=== PATIENT | male | born 1995 | race Caucasian/White ===

== ENCOUNTER 2019-10-03 03:32 | Emergency (ER) | payer SELFPAY ==
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
[2019-10-03] MEDS ORDERED: FLU Vacc QS2019-20(6MOS+)/PF 60 MCG/0.5 ML SYRINGE IM ONE (05:00)
--- NOTE | 2019-10-03 17:09 | CT ---
CT facial bones Technique: Multiple axial sections through the facial bones were obtained. Reconstructed coronal and sagittal images were obtained. Comparison: No previous study is available. Findings: Slightly comminuted and mildly displaced nasal bone fractures are seen on both sides. No additional facial bone fracture is appreciated. Right and left globes are symmetric. Minimal scattered areas of mucosal thickening are seen within the paranasal sinuses. Impression: 1. Comminuted and mildly displaced nasal bone fracture on both sides. 2. Minimal mucosal thickening scattered within the paranasal sinuses which is believed to be pre-existing and incidental. 3. No additional abnormality is appreciated. Diagnostic code #3 This report was dictated in [place] Standard Time I agree with preliminary report from [facility], finalized on 10/03/19, 5:59 AM Central Time
== END 2019-10-03 05:20 | disposition home or self-care (01) ==
LOC: JD.ED 03:32
DX: S02.2XXA Fracture of nasal bones, initial encounter for closed fracture (principal); F10.20 Alcohol dependence, uncomplicated; F17.210 Nicotine dependence, cigarettes, uncomplicated; Z23 Encounter for immunization; Y04.0XXA Assault by unarmed brawl or fight, initial encounter; Y92.89 Other specified places as the place of occurrence of the external cause
CPT/HCPCS: 70486; 70486-26; 99283; 99284-25; G0008

== ENCOUNTER 2020-02-25 01:27 | Emergency (ER) | payer SELFPAY ==
[2020-02-25] MEDS ORDERED: Lidocaine 1% 10 ML MDV INJECT ONE (02:24)
[2020-02-25] MEDS ORDERED: Diphtheria,Pertussis(Acell),Tetanus Vaccine 0.5 ML Syringe IM ONE (02:29)
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
[2020-02-25] MEDS ORDERED: Amoxicillin/Clavulanate K 875-125 MG Tab PO ONE (03:09)
== END 2020-02-25 03:20 | disposition home or self-care (01) ==
LOC: JD.ED 01:27
DX: S61.351A Open bite of left index finger with damage to nail, initial encounter (principal); F17.210 Nicotine dependence, cigarettes, uncomplicated; Z23 Encounter for immunization; W50.3XXA Accidental bite by another person, initial encounter
CPT/HCPCS: 64450; 90471; 90715; 99283; A9270; J2001; 11760

== ENCOUNTER 2020-06-09 08:56 | Emergency (ER) | payer SELFPAY ==
--- NOTE | 2020-06-09 09:21 | EDM.PDOC ---
ED HPI GENERAL MEDICAL PROBLEM - General Chief Complaint: Lower Extremity Injury/Pain Stated Complaint: LT FOOT INJURY Time Seen by Provider: 06/09/20 09:11 Source of Information: Reports: Patient History Limitations: Reports: No Limitations - History of Present Illness INITIAL COMMENTS - FREE TEXT/NARRATIVE: The patient presents with left foot pain and swelling. The patient slipped on fell on some ice and injured his left foot. He has pain and swelling still. He has some numbness to his toes and has trouble moving his toes. He has no other injuries. Onset: Sudden Duration: Minutes: Location: Reports: Lower Extremity, Left (foot) Quality: Reports: Sharp Severity: Moderate Improves with: Reports: Immobilization Worsens with: Reports: Movement Context: Reports: Trauma (slipped and fell on ice) Associated Symptoms: Reports: No Other Symptoms Left Foot Pain Score (Numeric/FACES): 5 - Related Data Allergies Allergy/AdvReac Type Severity Reaction Status Date / Time No Known Allergies Allergy Verified 06/09/20 09:13 Home Meds: Home Meds . [No Known Home Meds] 06/09/20 [History] Past Medical History HEENT History: Reports: Other (See Below) Other HEENT History: Hx of nasal fx. Cardiovascular History: Reports: None Respiratory History: Reports: None Genitourinary History: Reports: None Musculoskeletal History: Reports: Fracture Neurological History: Reports: Concussion Psychiatric History: Reports: None Endocrine/Metabolic History: Reports: None Hematologic History: Reports: None Immunologic History: Reports: None Oncologic (Cancer) History: Reports: None Dermatologic History: Reports: None - Infectious Disease History Infectious Disease History: Reports: MRSA - Past Surgical History HEENT Surgical History: Reports: Oral Surgery GI Surgical History: Reports: Appendectomy, Cholecystectomy, Other (See Below) Social & Family History - Family History Family Medical History: Noncontributory - Caffeine Use Caffeine Use: Reports: Coffee - Living Situation & Occupation Living situation: Reports: Single, with Family (Parents) 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) Review of Systems - Review of Systems Review Of Systems: See Below Constitutional: Reports: No Symptoms Eyes: Reports: No Symptoms Ears: Reports: No Symptoms Nose: Reports: No Symptoms Mouth/Throat: Reports: No Symptoms Respiratory: Reports: No Symptoms Cardiovascular: Reports: No Symptoms GI/Abdominal: Reports: No Symptoms Genitourinary: Reports: No Symptoms Musculoskeletal: Reports: Other (Left lateral foot swelling and pain) ED EXAM, GENERAL - Physical Exam Exam: See Below Exam Limited By: No Limitations General Appearance: Alert, No Apparent Distress Ears: Normal External Exam Nose: Normal Inspection Head: Atraumatic, Normocephalic Neck: Normal Inspection Respiratory/Chest: No Respiratory Distress Extremities: Other (Swelling and pain to the left lateral anterior foot with mild pain upon palpation to the left lateral ankle. Good capillary refill distally. Decreased sensation to the 2nd through 5th toes.) Course - Vital Signs Last Recorded V/S: Last Vital Signs Temp 97.2 F 06/09/20 09:10 Pulse 98 06/09/20 09:10 Resp 14 06/09/20 09:10 BP 139/90 06/09/20 09:10 Pulse Ox 97 06/09/20 09:10 - Orders/Labs/Meds Orders: Active Orders 24 hr Category Date Time Status Foot Comp Min 3V Lt [CR] Stat Exams 06/09/20 09:16 Taken - Re-Assessments/Exams Free Text/Narrative Re-Assessment/Exam: 06/09/20 09:20 I have ordered an x-ray of his foot. 06/09/20 09:54 The x-ray of his foot shows no fracture. I will discharge him home. Departure - Departure Time of Disposition: 09:55 Disposition: Home, Self-Care 01 Condition: Good Clinical Impression: Sprain of left foot Qualifiers: Encounter type: initial encounter Qualified Code(s): S93.602A - Unspecified sprain of left foot, initial encounter - Discharge Information *PRESCRIPTION DRUG MONITORING PROGRAM REVIEWED*: Not Applicable *COPY OF PRESCRIPTION DRUG MONITORING REPORT IN PATIENT NATHALY: Not Applicable Referrals: PCP,None [Primary Care Provider] - Akshat Stone MD [Physician] - 2 Weeks Forms: ED Department Discharge Additional Instructions: Take tylenol or motrin for pain. Use ice or heat for your foot. If you do not feel better in a couple weeks follow up with Dr Stone. Sepsis Event Note (ED) - Evaluation Sepsis Screening Result: No Definite Risk - Focused Exam Vital Signs: Vital Signs Temp Pulse Resp BP Pulse Ox 06/09/20 09:10 97.2 F 98 14 139/90 97 - My Orders Last 24 Hours: My Active Orders 06/09/20 09:16 Foot Comp Min 3V Lt [CR] Stat - Assessment/Plan Last 24 Hours: My Active Orders 06/09/20 09:16 Foot Comp Min 3V Lt [CR] Stat
--- NOTE | 2020-06-09 14:15 | CR ---
PROCEDURE INFORMATION: Exam: XR Left Tibia and Fibula Exam date and time: 06/09/2020 9:23 AM Age: 24 years old Clinical indication: Injury or trauma; Fall; Blunt trauma and sprain or strain; Left; Injury details: Slipped and fell down some icy stairs; Patient commented that the outside of his foot hit two stairs on his way down TECHNIQUE: Imaging protocol: XR Left tibia and fibula. Views: 2 views. COMPARISON: No relevant prior studies available. FINDINGS: Bones/joints: Normal. No fracture identified. Soft tissues: Soft tissue swelling about the left midfoot. IMPRESSION: Soft tissue swelling about the left midfoot. No fracture identified. Thank you for allowing us to participate in the care of your patient. Dictated and Authenticated by: Rosalee Zurita MD 06/09/2020 12:13 PM Central Time ([place] & [place]) [facility]
== END 2020-06-09 10:15 | disposition home or self-care (01) ==
LOC: JD.ED 08:56
DX: S93.602A Unspecified sprain of left foot, initial encounter (principal); W00.0XXA Fall on same level due to ice and snow, initial encounter
CPT/HCPCS: 73630-26-LT; 73630-LT; 99282; 99283-25